=== PATIENT | female | born 1970 | race African-American/Black ===

== ENCOUNTER 2017-07-07 08:47 | Day surgery (SDC) | payer OTHER ==
[2017-07-07] VITALS (11 sets, daily range): BP systolic 130–152; BP diastolic 73–96; PULSE 62–74; RESP 15–22
[~2017-07-07] VITALS: Ht 152.4 cm; Wt 79.4 kg
[~2017-07-07 08:47] MED LIST: CEFAZOLIN 1 GM INJ ONE; CEFAZOLIN 2 GM/50 ML (PMX) 50 ML IVPB ONE; SOD CHLORIDE 0.9% 1,000 ML IV ONE
[2017-07-07] MEDS ORDERED: LOSA50TA6 PO (09:09)
[2017-07-07 10:26] LABS: BASOPHILS % 0.4 % (0.0-2.0); EOSINOPHILS % 0.9 % (0.0-7.0); HEMATOCRIT 38.4 % (37.0-47.0); HEMOGLOBIN 12.5 g/dl (12.0-16.0); LYMPHOCYTES # 1.8 10^3/ul (0.8-2.9); LYMPHOCYTES % 38.6 % (15.0-51.0); MEAN CORPUSCULAR HEMOGLOBIN 25.9 pg (29.0-33.0); MEAN CORPUSCULAR HGB CONC 32.6 g/dl (32.0-37.0); MEAN CORPUSCULAR VOLUME 79.5 fl (82.0-101.0); MEAN PLATELET VOLUME 8.6 fl (7.4-10.4); MONOCYTE # 0.5 10^3/ul (0.3-0.9); MONOCYTES % 10.8 % (0.0-11.0); NEUTROPHIL # 2.2 10^3/ul (1.6-7.5); NEUTROPHILS % 49.1 % (39.0-77.0); PLATELET COUNT 277 10^3/UL (140-415); RED BLOOD COUNT 4.83 10^6/ul (4.20-5.40); RED CELL DISTRIBUTION WIDTH 13.3 % (11.5-14.5); WHITE BLOOD COUNT 4.5 10^3/ul (4.8-10.8)
[2017-07-07] MEDS ORDERED: BUPIVACAINE 0.25% (MPF) 30 ML INJ ONE (10:27)
[2017-07-07 10:47] LABS: ALBUMIN 3.8 g/dl (3.3-4.9); ALBUMIN/GLOBULIN RATIO 0.95; BILIRUBIN,INDIRECT 0.3 mg/dl (0-1.1); BILIRUBIN,TOTAL 0.3 mg/dl (0.2-1.3); TOTAL PROTEIN 7.8 g/dl (6.1-8.1)
[2017-07-07 10:48] LABS: PARTIAL THROMBOPLASTIN TIME 29.9 Sec (25.0-35.0); PROTIME 13.3 Sec (11.9-14.9)
[2017-07-07] MEDS ORDERED: MIDAZOLAM 1 MG/ML 2 ML INJ ONE ×2 (10:51)
[2017-07-07] MEDS ORDERED: FENTAnyl 50 MCG/ML VIAL ONE (10:51)
[2017-07-07] MEDS ORDERED: ONDANSETRON 4 MG INJ ONE (10:51)
[2017-07-07 10:55] LABS: CALCIUM 9.5 mg/dl (8.4-10.2); CREATININE 0.86 mg/dl (0.44-1.00); POTASSIUM 4.3 mmol/L (3.5-5.1)
--- NOTE | 2017-07-07 11:42 | OPR ---
Date/Time of Note Date/Time of Note DATE: 07/07/17 TIME: 11:38 Operative Report Procedure Date: Jul 07, 2017 Preoperative Diagnosis pilonidal cyst Postoperative Diagnosis same Operation/Procedure Performed 1. pilonidal cystectomy 9 cm x 4 cm 2. localized adjacent tissue transfer with the use of skin flaps 36 sq cm defect cpt code 53739 3. therapeutic injection of subcutaneous local anesthesia cpt code 40563 Surgeon see signature line Podiatry Professor none Anesthesia Type: spinal Estimated Blood Loss: 10 - 50 ml's Transfusion none Specimen pilonidal cyst Grafts/Implants none Complications none Pt Condition Post Procedure: stable Indications This is a 38-year-old female who has had repeated infections of her pilonidal cyst. She requests surgical excision. Risks alternatives benefits and percent were discussed the patient. Patient expressed understanding and consents to the operation. Procedure Description Patient taken to the OR and prepped and draped in usual sterile fashion. Surgical timeout was performed. IV antibiotics given. Elliptical incision was performed over the area of the pilonidal cyst including prior stab marked for surgical I&D. Dissection Carrs carried out all the way to the bone. This area is excised en bloc. There is good hemostasis. Due to large tissue defect localized adjacent tissue transfer with these of skin flaps were performed. Multilayer closure with interrupted 2-0 Vicryl and skin is closed with interrupted 2-0 nylon. Therapeutic subcutaneous local anesthesia was injected the beginning and end of the case. Dry dressings were applied. Margaret MINOR Jul 07, 2017 11:42
[2017-07-07] MEDS ORDERED: HYDROCODONE/APAP (5/325) TAB PO ONE (12:00)
== END 2017-07-07 14:50 | disposition home or self-care (01) ==
LOC: SDS 08:47
PROVIDERS: ATTEND Surgery
DX: L05.91 Pilonidal cyst without abscess (principal); I10 Essential (primary) hypertension; E66.9 Obesity, unspecified; Z68.34 Body mass index [BMI] 34.0-34.9, adult
CPT/HCPCS: 11772; 80053; 84703; 85025; 85610; 85730; 88304; J0690; J2250; J2405; J3010; Q4118; Z7512; Z7610